=== PATIENT | female | born 1970 | race Caucasian/White ===

== ENCOUNTER → 2017-03-19 | Outpatient (REF) | LOC: WSOH 13:25 | DX: Z02.1 Encounter for pre-employment examination (principal) ==

== ENCOUNTER 2017-04-18 14:49 | Emergency (ER) | payer SELFPAY ==
[~2017-04-18] VITALS: Ht 177.8 cm; Wt 72.7 kg
[2017-04-18 15:00] VITALS: BP 119/63; PULSE 93; TEMP 98.2
[2017-04-18] MEDS ORDERED: ACCUPRIL5MGTAB (15:03)
[2017-04-18] MEDS ORDERED: HUMALOG100 U/ML SQ (15:04)
[2017-04-18] MEDS ORDERED: LEVEMIR100 U/ML SQ (15:04)
== END 2017-04-18 16:28 | disposition home or self-care (01) ==
LOC: COL.ER 14:49
DX: S90.424A Blister (nonthermal), right lesser toe(s), initial encounter (principal); E11.9 Type 2 diabetes mellitus without complications; I10 Essential (primary) hypertension; F17.210 Nicotine dependence, cigarettes, uncomplicated; Z79.4 Long term (current) use of insulin; Z90.49 Acquired absence of other specified parts of digestive tract; Z98.890 Other specified postprocedural states; X58.XXXA Exposure to other specified factors, initial encounter

== ENCOUNTER 2019-04-03 18:21 | Emergency (ER) | payer SELFPAY ==
[~2019-04-03] VITALS: Ht 180.3 cm; Wt 77.3 kg
[~2019-04-03 18:21] MED LIST: ACCUPRIL5MGTAB; HUMALOG100 U/ML SQ; LEVEMIR100 U/ML SQ
[2019-04-03] MEDS ORDERED: DOXYCYCLINE 10100 MG PO (19:21)
[2019-04-03 19:28] VITALS: BP 100/49; PULSE 89; TEMP 98.4
== END 2019-04-03 19:33 | disposition home or self-care (01) ==
LOC: COL.ER 18:21
DX: L02.31 Cutaneous abscess of buttock (principal); E11.9 Type 2 diabetes mellitus without complications; F17.210 Nicotine dependence, cigarettes, uncomplicated; Z90.89 Acquired absence of other organs; Z91.013 Allergy to seafood; Z79.4 Long term (current) use of insulin

== ENCOUNTER 2019-04-11 11:39 | Observation (INO) | payer SELFPAY ==
[~2019-04-11] VITALS: Ht 180.3 cm; Wt 179.0 kg
[~2019-04-11 11:39] MED LIST changes: +DOXYCYCLINE 10100 MG PO
[2019-04-11] MEDS ORDERED: LIPITOR20 MG PO (13:48)
[2019-04-11 14:26] LABS: BASO % 0.4 % (0.0-2.0); EOS # 0.3 (0.0-0.7); EOS % 2.9 % (0-4.0); GRAN # 5.8 (1.4-6.5); GRAN % 62.9 % (42.2-75.2); HEMOGLOBIN 10.3 g/dl (12.5-16.0); LYMPH # 2.4 (1.2-3.4); LYMPH % 25.9 % (20.0-51.0); MEAN CELL VOLUME 92 fl (80.0-100.0); MEAN CORPUSCULAR HEMOGLOBIN 29 pg (27.0-31.0); MEAN CORPUSCULAR HGB CONC 32 g/dl (33.0-37.0); MONO # 0.7 (0.1-0.6); MONO % 7.5 % (1.7-9.3); PLATELET COUNT 450 K/mm3 (130-400); RED BLOOD COUNT 3.51 M/mm3 (4.10-5.30)
[2019-04-11 14:27] LABS: HEMATOCRIT 32.4 % (37.0-47.0)
[2019-04-11 14:39] LABS: ALBUMIN 3.4 gm/dL (3.5-5.0); BILIRUBIN,TOTAL 0.2 mg/dL (0.0-1.0); C-REACTIVE PROTEIN 0.9 mg/dL (0.0-0.9); CREATININE, serum 0.58 (0.52-1.25); POTASSIUM 4.3 mmol/L (3.4-5.0); TOTAL PROTEIN 7.3 gm/dL (6.4-8.2)
[2019-04-11 17:42] VITALS: BP 142/68; PULSE 67; TEMP 98.1
--- NOTE | 2019-04-11 18:23 | NUR ---
Vancomycin Initial Dosing Pharmacy Note Ordering provider: Dar Wilson MD Indication/duration: Cellulitis LABS: eCrCl is over 100 mL/min Recommendation: Loading dose: 1.5 grams on 04/11/19 @ 1800 Maintenance dose: 1 gram Q8H Trough goal: 10-15 ug/mL with first trough draw 04/13/19 @ 09:30 Will continue to follow.
[2019-04-11 20:00] VITALS: BP 132/68; PULSE 68; TEMP 97.5
--- NOTE | 2019-04-11 20:00 | NUR ---
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 Assessment complete. VS stable. Denies shortness of breath/pain/nausea. Has been up out of bed to ambulate. Tolerating PO. Voiding/passing gas. Plan of care discussed for this shift to include ambulation/pain control/antibiotics. Denies questions or concerns. Call light in reach. Bed in low wheels locked. Family at bedside. Will monitor.
[2019-04-12] VITALS: BP 117/58; PULSE 66; TEMP 98
--- NOTE | 2019-04-12 01:10 | NUR ---
C/O nausea. States it recently started-thinks its related to percocet or antibiotics. Zofran 4mg given per dr order. Will monitor.
[2019-04-12 04:00] VITALS: BP 97/56; PULSE 64; TEMP 97.3
[2019-04-12 07:32] LABS: BASO % 0.2 % (0.0-2.0); EOS % 0.1 % (0-4.0); GRAN # 11.3 (1.4-6.5); GRAN % 81.3 % (42.2-75.2); LYMPH # 1.9 (1.2-3.4); LYMPH % 13.4 % (20.0-51.0); MEAN CELL VOLUME 92 fl (80.0-100.0); MEAN CORPUSCULAR HGB CONC 32 g/dl (33.0-37.0); MEAN PLATELET VOLUME 9.4 fl (7.4-10.4); MONO # 0.6 (0.1-0.6); MONO % 4.4 % (1.7-9.3); PLATELET COUNT 447 K/mm3 (130-400); RED BLOOD COUNT 3.38 M/mm3 (4.10-5.30); REDCELL DISTRIBUTION WIDTH-CV 13.1 % (11.5-14.5)
[2019-04-12 07:36] LABS: HEMATOCRIT 31.1 % (37.0-47.0); HEMOGLOBIN 9.9 g/dl (12.5-16.0); MEAN CORPUSCULAR HEMOGLOBIN 29 pg (27.0-31.0)
[2019-04-12 07:37] LABS: ALBUMIN 3.2 gm/dL (3.5-5.0); BILIRUBIN,TOTAL 0.2 mg/dL (0.0-1.0); CALCIUM 8.7 mg/dL (8.4-10.2); CREATININE, serum 0.6 (0.52-1.25); POTASSIUM 3.9 mmol/L (3.4-5.0); TOTAL PROTEIN 6.8 gm/dL (6.4-8.2)
[2019-04-12 07:48] VITALS: BP 114/66; PULSE 72; TEMP 98.5
--- NOTE | 2019-04-12 08:00 | NUR ---
PATIENT IS RESTING IN BED THIS MORNING WITH HER PRESENT AT THE BEDSIDE. PATIENT IS A&OX4. VSS. BOWEL SOUNDS ACTIVE ALL FOUR QUADRANT. PATIENT TOLERATING DIET WITHOUT ANY COMPLAINTS OF N/V. SHALLOW BREATHING NOTED. UPPER LUNG RUSSELL CLEAR UPON AUSCULTATION. BASES DIMINISHED BILATERALLY. PATIENT DENIES SOB OR A PRODUCTIVE COUGH. POSITIVE PEDAL PULSES EQUAL BILATERALLY. LEFT AC TO INT. THICK, STICKY, WHITE, MUCOUS-LIKE DRAINAGE DRAINING FROM LEFT GLUTEAL ABSCESS. SEROSANGUINEOUS-LIKE DRAINAGE PRESENT ON CHUCKS PAD FROM GLUTEAL ABSCESS SITE. CALL LIGHT WITHIN REACH. PATIENT DENIES ANY NEEDS AT THIS TIME.
[2019-04-12 11:31] VITALS: BP 114/56; PULSE 65; TEMP 98
--- NOTE | 2019-04-12 12:57 | NUR ---
Laminating Machine Tender visited with patient briefly but nothing else needed at this time.
--- NOTE | 2019-04-12 14:35 | NUR ---
PATIENTS LEFT GUTEAL WOUND PACKED WITH IODOFORM AND COVERED WITH GAUZE AND HYPAFIX TAPE. PATIENT TOLERATED WELL. PATIENT DENIES ANY NEEDS AT THIS TIME.
[2019-04-12 15:54] VITALS: BP 102/555; PULSE 69; TEMP 98.3
--- NOTE | 2019-04-12 18:00 | NUR ---
PATIENT CALLED OUT STATING THAT HER IV SITE IS LEAKING. ANTIBIOTIC STOPPED. LEFT AC INT DISCONTINUED. TIP INTACT. PATIENT TOLERATED WELL.
--- NOTE | 2019-04-12 18:17 | NUR ---
IV ANTIBIOTIC INFUSING TO LEFT FOREARM IV VIA PUMP. DINNER TRAY AT THE BEDSIDE. PATIENT RATING HER PAIN A 2/10 ON A 0-10 SCALE. AT THE BEDSIDE. CALL LIGHT WITHIN REACH. NO OTHER NEEDS AT THIS TIME.
--- NOTE | 2019-04-12 18:56 | NUR ---
BEDSIDE SHIFT REPORT GIVEN TO GO FERNANDO.
[2019-04-12 19:37] VITALS: BP 123/61; PULSE 67; TEMP 99.1
--- NOTE | 2019-04-12 20:00 | NUR ---
Report received. Assumed care for weight shifter. A&Ox3. Assessment complete. VS stable. Denies nausea/shortness of breath. Rating pain 5/10 to left buttock-described as burning pain that is intermittent depending on position. Requesting tylenol only-states she doesnt need anything stronger. Dressnig to left buttock C/D/I. Plan of care discussed for HS meds/antibiotics/pain control and dressing change. Discussed timing of dressing change. States it was done on day shift around 1400 so will wait until antibiotics are due later this shift. Denies any questions or concerns. Family at bedside. Call light in reach. Will monitor.
[2019-04-13 00:13] VITALS: BP 109/58; PULSE 60; TEMP 98
--- NOTE | 2019-04-13 03:00 | NUR ---
Dressing change completed at this time. Iodoform packing placed and covered with 4x4 guaze. Noted to have a dime size blister near coccyx. No tape placed over gauze-mesh panties applied to hold gauze in place. Tolerated well.
[2019-04-13 04:00] VITALS: BP 116/67; PULSE 62; TEMP 98
--- NOTE | 2019-04-13 05:25 | NUR ---
Called to nurses station stating she felt like her blood sugar was low. Bedside glucose 52. Given orange juice and melissa crackers. Recheck bedside glucose-73. BANDAR Day notified. No new orders received. Will recheck in 1 hour per protocol.
[2019-04-13 07:04] LABS: BASO % 0.4 % (0.0-2.0); EOS # 0.2 (0.0-0.7); EOS % 2.1 % (0-4.0); GRAN # 4.4 (1.4-6.5); GRAN % 54.2 % (42.2-75.2); LYMPH % 37.1 % (20.0-51.0); MEAN CELL VOLUME 93 fl (80.0-100.0); MEAN CORPUSCULAR HGB CONC 32 g/dl (33.0-37.0); MEAN PLATELET VOLUME 9.1 fl (7.4-10.4); MONO # 0.5 (0.1-0.6); PLATELET COUNT 361 K/mm3 (130-400); RED BLOOD COUNT 3.07 M/mm3 (4.10-5.30); REDCELL DISTRIBUTION WIDTH-CV 13.3 % (11.5-14.5)
[2019-04-13 07:06] LABS: HEMATOCRIT 28.5 % (37.0-47.0); MEAN CORPUSCULAR HEMOGLOBIN 29 pg (27.0-31.0)
[2019-04-13 07:09] LABS: ALANINE AMINOTRANSFERASE 14 U/L (9-52); ALKALINE PHOSPHATASE 64 U/L (50-136); ANION GAP 5 mmol/L (7-16); AST,SGOT 25 U/L (15-37); BILIRUBIN,TOTAL < 0.1 mg/dL (0.0-1.0); BLOOD UREA NITROGEN 14 mg/dL (7-17); CALCIUM 8.8 mg/dL (8.4-10.2); CARBON DIOXIDE 28 mmol/L (22-30); CHLORIDE 108 mmol/L (98-107); CREATININE, serum 0.68 (0.52-1.25); GLUCOSE 90 mg/dL (74-106); POTASSIUM 3.8 mmol/L (3.4-5.0); SODIUM 141 mmol/L (137-145); TOTAL PROTEIN 6.3 gm/dL (6.4-8.2)
--- NOTE | 2019-04-13 08:00 | NUR ---
SEE MORNING SHIFT ASSESSMENT. PATIENT DENIES PAIN THIS AM. PRESENT AT THE BEDSIDE. CALL LIGHT WITHIN REACH. PATIENT DENIES ANY NEEDS AT THIS TIME.
[2019-04-13 08:44] VITALS: BP 156/81; PULSE 67; TEMP 97.9
[2019-04-13 11:44] VITALS: BP 144/61; PULSE 64; TEMP 98
[2019-04-13] MEDS ORDERED: MOTRIN 600600 MG/TAB PO (13:16)
[2019-04-13] MEDS ORDERED: CEPHALEXIN500 M1 PO (13:16)
[2019-04-13] MEDS ORDERED: [UNRECOGNIZED DRUG - OTHER] SQ (13:33)
--- NOTE | 2019-04-13 14:35 | NUR ---
PATIENT CALLED OUT REQUESTING HER BLOOD SUGAR TO BE CHECKED. BLOOD GLUCOSE WAS 56. PATIENT GIVEN TWO CUPS OF ORANGE JUICE AND CHAD CRACKERS. WILL CONTINUE TO [place].
--- NOTE | 2019-04-13 15:12 | NUR ---
PATIENTS BLOOD SUGAR RE-CHECKED. BLOOD GLUCOSE IS 75. SNACK OFFERED. PATIENT REFUSED ADDITIONAL SNACK AND STATES THAT SHE FEELS OKAY AT THIS TIME.
--- NOTE | 2019-04-13 16:20 | NUR ---
PACKING REMOVED FROM GLUTEAL ABSCESS. WOUND PACKED WITH IODOFORM GAUZE AND COVERED WITH 4X4 GAUZE AND MESH PANTIES. PATIENT TOLERATED WELL. EDUCATED ON HOW TO PACK THE WOUND AND OBSERVED THE DRESSING CHANGE. ALL QUESTIONS ANSWERED. PATIENT PERSONAL BELONGINGS GATHERED. DISCHARGE INSTRUCTIONS REVIEWED WITH PATIENT AND . PATIENT LEFT FOREARM INT DISCONTINUED PER PENDING DISCHARGE. TIP INTACT. PATIENT TOLERATED WELL.
--- NOTE | 2019-04-13 16:40 | NUR ---
PATIENT AMBULATED WITH SURGICAL STAFF TO PERSONAL VEHICLE. PATIENT DISCHARGED.
== END 2019-04-13 16:40 | disposition home or self-care (01) ==
LOC: COL.ER 11:39 → SURG 15:56
PROVIDERS: Physician Assistant; ADMIT Surgery
DX: L03.317 Cellulitis of buttock (principal); E10.9 Type 1 diabetes mellitus without complications; Z79.4 Long term (current) use of insulin; Z79.899 Other long term (current) drug therapy; E78.5 Hyperlipidemia, unspecified; F17.210 Nicotine dependence, cigarettes, uncomplicated; I10 Essential (primary) hypertension
CPT/HCPCS: 99222; 99231-AI; G0378; J1200; J1815; J2405; J2543; J2930; J3370; J7030; J7050; Q9967